=== PATIENT | male | born 1940 | race Caucasian/White ===

== ENCOUNTER 2021-08-08 15:33 | Emergency (ER) | payer MEDICARE, OTHER ==
[2021-08-08 17:48] LABS: BILIRUBIN NEGATIVE (NEGATIVE); BLOOD 3+ Ery/uL (NEGATIVE); CLARITY CLOUDY (CLEAR); COLOR BROWN (YELLOW); GLUCOSE (U) NORMAL (NORMAL); LEUKOCYTES 1+ Leu/uL (NEGATIVE); NITRITE POSITIVE (NEGATIVE); PROTEIN 3+ mg/dL (NEGATIVE); SPECIFIC GRAVITY 1.015 (1.001-1.030); pH 6.5 (5.0-9.0)
[2021-08-08 17:57] LABS: BACTERIA TRACE; URINARY RBC TNTC
[2021-08-08] MEDS ORDERED: CEPHALEXIN500 MG PO ×2 (18:07→18:21)
== END 2021-08-08 18:49 | disposition home or self-care (01) ==
LOC: FER 15:33
PROVIDERS: Emergency Medicine
DX: R33.9 Retention of urine, unspecified (principal); N39.0 Urinary tract infection, site not specified; I10 Essential (primary) hypertension; Z79.899 Other long term (current) drug therapy; Z79.82 Long term (current) use of aspirin
CPT/HCPCS: 81001; 96374; 96375; J1170; J2270